=== PATIENT | female | born 1955 | race Caucasian/White ===

== ENCOUNTER 2024-06-20 10:57 | Day surgery (SDC) | payer MEDICARE, SELFPAY ==
[2024-06-06 11:03] VITALS: BMI 26.6
[2024-06-07 12:41] VITALS: BMI 26.6
--- NOTE | 2024-06-20 09:13 | P.PNAN_ITS ---
Anes - Initial Pre Proc Eval Procedure: Operation Date: 06/20/24 13:45 Proposed Procedures p Diagnostic Colonoscopy - Luis Quiroga MD Date/Time: 06/20/24 09:13 Surgeon: Luis Quiroga MD Pre Op Diagnosis: History of Polyps Patient Data Age: 68 Gender: F Height: 1.68 m Weight: 75 kg Allergies Allergy/AdvReac Type Severity Reaction Status Date / Time morphine AdvReac Severe ITCHING Verified 06/20/24 11:16 Home Medications Medication Instructions Recorded Confirmed Type cholecalciferol (vitamin D3) 1 tab-cap PO DAILY 06/07/24 06/20/24 History cyanocobalamin (vitamin B-12) 100 100 mcg PO DAILY 06/07/24 06/20/24 History mcg tablet escitalopram oxalate 20 mg tablet 20 mg PO DAILY 06/07/24 06/20/24 History levothyroxine 100 mcg tablet 100 mcg PO DAILY 06/07/24 06/20/24 History multivit with minerals-iron 18 1 tablet PO DAILY 06/07/24 06/20/24 History mg-folic ac 400 mcg-vit K 25 mcg tablet (Adults Multivitamin) spironolactone 25 mg tablet 25 mg PO DAILY 06/20/24 06/20/24 History Patient hx anesthesia problems: none Family hx anesthesia problems: none Results Review: All pre-operative results and documents have been reviewed as part of the pre- operative evaluation. [facility] Past Medical History Medical History (Updated 06/20/24 @ 11:54 by Luis Quiroga MD) Hyperlipidemia Hypothyroidism Pancreatitis Surgical History Surgical History (Updated 06/20/24 @ 09:14 by Thai Wright DO) History of hysterectomy Social History Social History Smoking packs per day: 0.5 Smoking cigarettes per day: 10.0 Years smoked: 20 Smoking pack-years: 10.00 Smoking status: Former smoker Tobacco type: cigarettes Additional smoking assessment comments: quit 2009 Alcohol intake: never Substance use: never Substance use type: does not use Living arrangements: with family Spiritual care concerns: No Anes - Eval Final PreProcedure Day of Procedure 06/20/24 09:13 Patient weight: overweight Heart: regular rate and rhythm Lungs: clear to auscultation Airway: Mallampati scale class II Neurological: alert and oriented Last oral intake: >/= 8 hours ASA classification: II Emergent: no Anesthetic plan: proceed Anesthesia type and monitoring: general GIVS and standard monitoring Results Review: All pre-operative results and documents have been reviewed as part of the pre- operative evaluation. Informed Consent: The patient's anesthetic plan and its attendant risks and benefits were discussed with the patient/family/POA. Questions were solicited and answers provided to the satisfaction of the patient/family/POA.
[2024-06-20 11:17] VITALS: BP 141/67; PULSE 77; RESP 14; TEMP 37.3; O2SAT 98
[2024-06-20] MEDS: LACTATED RINGERS 1,000 ML 150 ML IV CONT (11:20)
--- NOTE | 2024-06-20 11:52 | PM.HPGS ---
History of Present Illness History of Present Illness Consent: Risks, benefits, and alternatives have been discussed and questions answered. Patient agrees to proceed with procedure. Chief complaint: History of Polyps Narrative: Ines Malave is a 68 year old female presents for screening colonoscopy. Patient's current weight appetite and bowel movements are normal. Patient denies abdominal pain. She has had no bleeding. Family history noncontributory. Patient did have previous colonoscopy by Dr. Ledezma in 2019 and colon polyps were identified. Patient presents for follow-up colonoscopy today because of history of colon polyps. Review of Systems Review of Systems: All systems reviewed & are unremarkable except as noted in HPI and below PMFSH Past Medical History Medical History (Updated 06/20/24 @ 11:54 by Luis Quiroga MD) Hyperlipidemia Hypothyroidism Pancreatitis Surgical History Surgical History (Updated 06/20/24 @ 09:14 by Thai Wright DO) History of hysterectomy Social History Social History Smoking packs per day: 0.5 Smoking cigarettes per day: 10.0 Years smoked: 20 Smoking pack-years: 10.00 Smoking status: Former smoker Tobacco type: cigarettes Additional smoking assessment comments: quit 2010 Alcohol intake: never Substance use: never Substance use type: does not use Living arrangements: with family Spiritual care concerns: No Meds Home Medications and Allergies Home Medications Medication Instructions Recorded Confirmed Type cholecalciferol (vitamin D3) 1 tab-cap PO DAILY 06/07/24 06/20/24 History cyanocobalamin (vitamin B-12) 100 100 mcg PO DAILY 06/07/24 06/20/24 History mcg tablet escitalopram oxalate 20 mg tablet 20 mg PO DAILY 06/07/24 06/20/24 History levothyroxine 100 mcg tablet 100 mcg PO DAILY 06/07/24 06/20/24 History multivit with minerals-iron 18 1 tablet PO DAILY 06/07/24 06/20/24 History mg-folic ac 400 mcg-vit K 25 mcg tablet (Adults Multivitamin) spironolactone 25 mg tablet 25 mg PO DAILY 06/20/24 06/20/24 History Allergies Allergy/AdvReac Type Severity Reaction Status Date / Time morphine AdvReac Severe ITCHING Verified 06/20/24 11:16 Vital Signs Vital Signs - 24 hr 06/20/24 11:17 Temperature 99.2 F Pulse Rate 77 Respiratory Rate 14 Blood Pressure 141/67 H Pulse Oximetry 98 Oxygen Delivery Room Air Exam Narrative: Physical exam reveals patient to be alert. Vital signs stable. HEENT exam is unremarkable. Patient is anicteric. Lungs are clear to auscultation and to percussion. Is without murmur or extra sounds. Abdomen bowel sounds are present soft nontender with no organomegaly. Digital external rectal exam normal. Assessment and Plan Assessment and plan (1) History of colon polyps: Code(s): Z86.0100 - Personal history of colon polyps, unspecified Status: Acute Assessment and Plan: Patient has a history of colon polyps. Plan for surveillance colonoscopy at intervals because of this history.
[2024-06-20 12:56] VITALS: BP 103/59; PULSE 77; RESP 15; O2SAT 97
--- NOTE | 2024-06-20 13:03 | WPDANESPN ---
Anes - Prog Note Post-Op Date/Time: 06/20/24 13:03 Cardiovascular status: normal Respiratory status: normal Airway patency: baseline Mental status: baseline Post-Op hydration status: normal Vital Signs: Last Vital Signs Temp 37.3 C 06/20/24 11:17 Pulse 77 06/20/24 12:56 Resp 15 06/20/24 12:56 BP 103/59 L 06/20/24 12:56 Pulse Ox 97 06/20/24 12:56 O2 Del Method Room Air 06/20/24 12:56 Pain Score (VAS): 0 I/O: Intake & Output 06/19/24 06/20/24 06/20/24 23:59 07:59 15:59 Intake Total 600 Balance 600 Post-procedural complaints: none Patient Feedback: Patient satisfied with anesthetic care. Other Findings: Patient vital signs back to baseline. Patient denies nausea and vomiting. Patient's pain under control. Patient OK for discharge.
[2024-06-20 13:06] VITALS: BP 102/58; PULSE 74; RESP 15; O2SAT 99
[2024-06-20 13:16] VITALS: BP 114/63; PULSE 76; RESP 15; O2SAT 99
== END 2024-06-20 13:26 | disposition home or self-care (01) ==
PROVIDERS: PCP Internal Medicine; Visit Provider Internal Medicine Gastroenterology
PROC: 0DJD8ZZ Inspection of Lower Intestinal Tract, Via Natural or Artificial Opening Endoscopic (ICD-10-PCS; CPT 45378; principal; 2024-06-20 13:45)
DX: Z86.0100 Personal history of colon polyps, unspecified (principal); K64.8 Other hemorrhoids
CPT/HCPCS: 45378